=== PATIENT | male | born 1955 | race Caucasian/White ===

== ENCOUNTER 2018-09-01 10:14 | Day surgery (SDC) | payer BC ==
[~2018-09-01] VITALS: Ht 167.6 cm; Wt 81.5 kg
[2018-09-01 10:48] VITALS: Ht 167.6 cm; Wt 81.5 kg
[2018-09-01] MEDS ORDERED: LOSARTAN-HCTZ (10:53)
[2018-09-01] MEDS ORDERED: ASA 81 (10:53)
[2018-09-01] MEDS ORDERED: AMLODIPINE (10:53)
[2018-09-01 11:08] VITALS: BP 129/76; PULSE 78; RESP 18
[2018-09-01] MEDS ORDERED: MIDAZOLAM 1 MG/ML 2 ML INJ ONE ×2 (11:53)
[2018-09-01] MEDS ORDERED: FENTAnyl 50 MCG/ML VIAL ONE (11:53)
[2018-09-01 12:11] VITALS: BP 131/79; PULSE 79; RESP 20
== END 2018-09-01 12:43 | disposition home or self-care (01) ==
LOC: GIL 10:14
PROVIDERS: ATTEND Internal Medicine Gastroenterology
DX: Z12.11 Encounter for screening for malignant neoplasm of colon (principal); K64.4 Residual hemorrhoidal skin tags; K57.30 Diverticulosis of large intestine without perforation or abscess without bleeding; Z86.010 Personal history of colon polyps; I10 Essential (primary) hypertension
CPT/HCPCS: 45378; J2250; J3010